=== PATIENT | female | born 1975 | race Caucasian/White ===

== ENCOUNTER 2021-01-09 16:49 | Emergency (ER) | payer MEDICAID, SELFPAY ==
[2021-01-09 18:15] VITALS: BP 140/72; PULSE 78; RESP 20; TEMP 36.9; O2SAT 98; BMI 39.0
[2021-01-09 18:43] VITALS: BP 140/72; PULSE 78; RESP 20; TEMP 36.9; O2SAT 98
--- NOTE | 2021-01-09 18:54 | HMH.EDUTC ---
[facility] Disposition Clinical Impression: Encounter for laboratory testing for COVID-19 virus Disposition: Home, Self-Care Condition on Discharge: Good Instructions: DI for COVID-19 (Suspected or Confirmed ), Coronavirus Disease 2019, Preventing the Spread of Coronavirus Discharge Instructions Additional Instructions: *Monitor Temp, Over the counter Motrin or Tylenol as directed/as needed Tylenol every 4 hours and Motrin every 6 hours (as long as your family doctor has told you that you can take it) for fever or pain. and straight to ER if unable to lower temp less than 101.0 after medication given Follow up IMMEDIATELY for new or worsening symptoms or no Noticeable improvement over the next 48-72 hours. 911 for difficulty breathing or swallowing You were tested for today for COVID19 your test result should be back in the next 24-48 hours, you may call to the [facility] to see if your test results are back in the next 48 hours [phone] [facility] hours are 9am-9pm You was given a handout with instructions for Self Quarantine and Self isolation for while you wait on test results and what to do if they are positive If you are positive the Health Dept will be contacting you also Make sure to take your Vitamins Vit. C Vit D and Zinc if you can take them Referrals: Jason Robles [Primary Care Provider] - As needed Time of Disposition: 18:56 Medical Decision Making - Justin Inquiry Pt receiving controlled substance: No Justin was queried for this patient: No Vital Signs: 01/09/21 18:15 01/09/21 18:43 Temperature 98.5 F 98.5 F Temperature Source Oral Pulse Rate 78 Pulse Rate [Right Brachial] 78 Respiratory Rate 20 20 Blood Pressure 140/72 Blood Pressure [Right Arm] 140/72 Blood Pressure Mean [Right Arm] 94 Blood Pressure Source [Right Arm] Automatic Cuff Blood Pressure Position [Right Arm] Sitting 02 Sat by Pulse Oximetry 98 Oxygen Delivery Method Room Air [facility] HPI - General Stated complaint: Covid test Time Seen by Provider: 01/09/21 18:54 Mode of Arrival: Ambulatory Source of Information: Patient Limitations: No Limitations Description of Symptoms (Recalled from Triage Doc. by RN): COVID TEST D/T EXPOSURE. DENIES SYMPTOMS HEENT Symptoms (Recalled from RN notes): No Resp Symptoms (Recalled from RN notes): No Skin Symptoms (Recalled from RN notes): No MS Symptoms (Recalled from RN notes): No Functional Status (Recalled from RN notes): WNL - History of Present Illness Provider Complaint: Patient state that she wanted to get tested for COVID due to someone that works with her recently tested positive for COVID but she is not having any symptoms - Related Data Allergies Allergy/AdvReac Type Severity Reaction Status Date / Time No Known Allergies Allergy Unverified 05/13/17 14:30 - Worker's Comp Is this a Worker's Comp case?: No [facility] History - Hepatitis A Screen Drug use history?: No High risk sexual behaviors?: No History of sexually transmitted infection?: No Currently employed?: No Childcare worker?: No Do you have indoor plumbing?: Yes Do you have electricity?: Yes Attestation statement:: This patient has been screened for Hepatitis A risk factors. I have reviewed the patient's past medical history: Yes ROS Obtained: Yes All systems reviewed & no additional complaints, Yes Systems reviewed as appropriate & no additional complaints - Constitutional Constitutional: Reports system reviewed and no additional complaints, except as docu, Denies body ache, Denies chills, Denies fever(s) - ENT Ears, Nose, Mouth, and Throat: Reports system reviewed and no additional complaints, except as docu, Denies nasal congestion, Denies nasal discharge, Denies sore throat - Cardiovascular Cardiovascular: Reports system reviewed and no additional complaints, except as docu - Respiratory Respiratory: Reports system reviewed and no additional complaints, except as docu, Denies shortness of breath, D
== END 2021-01-09 19:09 | disposition home or self-care (01) ==
PROVIDERS: Emergency Provider Nurse Practitioner; PCP Family Medicine
DX: Z20.822 Contact with and (suspected) exposure to COVID-19 (principal)
CPT/HCPCS: 99202; G0463; U0003

== ENCOUNTER 2023-08-02 20:47 | Emergency (ER) | payer MEDICAID, SELFPAY ==
[2023-08-02 20:50] VITALS: BP 157/97; PULSE 95; RESP 18; TEMP 36.5; O2SAT 99; BMI 37.8
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
[2023-08-02] MEDS: ACETAMINOPHEN 500MG TAB 1000 MG PO (21:37)
[2023-08-02] MEDS: IBUPROFEN 600 MG TABLET PO (21:37)
[2023-08-02 22:00] LABS: Urine Pregnancy, HCG Qual. Negative (Negative)
--- NOTE | 2023-08-02 22:09 | PC.NURSE ---
pt to rad
--- NOTE | 2023-08-02 22:22 | PC.NURSE ---
pt back from rad
[2023-08-02 22:49] VITALS: BP 151/90; PULSE 70; RESP 18; TEMP 36.2; O2SAT 98
== END 2023-08-02 22:49 | disposition home or self-care (01) ==
PROVIDERS: Emergency Provider Emergency Medicine; PCP Family Medicine
DX: S09.8XXA Other specified injuries of head, initial encounter (principal); F17.210 Nicotine dependence, cigarettes, uncomplicated; Y04.8XXA Assault by other bodily force, initial encounter; Y04.2XXA Assault by strike against or bumped into by another person, initial encounter
CPT/HCPCS: 70450; 70486; 72125; 81025; 99285